=== PATIENT | male | born 1950 | race Caucasian/White ===

== ENCOUNTER 2018-12-11 16:03 | Emergency (ER) | payer MEDICARE, BC ==
[~2018-12-11] VITALS: Ht 188 cm; Wt 104.3 kg
[2018-12-11 16:03] VITALS: BP 130/81
[2018-12-11] MEDS ORDERED: ALBUTEROL FS 2.5 MG/3 ML VIAL.NEB NEB ONE (18:00)
[2018-12-11] MEDS ORDERED: ALBUTEROL FS 2.5 MG/3 ML VIAL.NEB ONE (18:16)
== END 2018-12-11 18:54 | disposition home or self-care (01) ==
LOC: ER 16:04
DX: J40 Bronchitis, not specified as acute or chronic (principal); I10 Essential (primary) hypertension; E78.00 Pure hypercholesterolemia, unspecified; E03.9 Hypothyroidism, unspecified; Z60.2 Problems related to living alone
CPT/HCPCS: 71045-TC